=== PATIENT | female | born 1945 | race Caucasian/White ===

== ENCOUNTER → 2023-05-31 07:06 | Outpatient (REF) | payer OTHER, SELFPAY ==
[2023-05-31 10:33] LABS: ALT (SGPT) 26 U/L (0-35); AST (SGOT) 33 U/L (14-36); Albumin 3.9 g/dl (3.5-5.0); Alkaline Phosphatase 100 U/L (38-126); Blood Urea Nitrogen 39 mg/dl (7-17); Calcium 9.4 mg/dl (8.4-10.2); Carbon Dioxide 20 mmol/L (22-30); Chloride 111 mmol/L (98-107); Glucose 100 mg/dl (70-99); HDL Cholesterol 47 mg/dl; LDL Cholesterol, Calculated 63 mg/dl; Potassium 3.8 mmol/L (3.5-5.1); Sodium 139 mmol/L (135-145); Total Bilirubin 0.7 mg/dl (0.2-1.3); Total Cholesterol 158 mg/dl (50-199); Total Protein 6.7 g/dl (6.3-8.2); Triglyceride 240 mg/dl (10-149); Very Low Density Lipoprotein 48 mg/dl (0-30); eGFR 35.23
[2023-05-31 10:56] LABS: Microalbumin, Random Urine 1.5 mg/dl (0.6-1.7); Microalbumin/creatinine Ratio 20.3 mg/g
== END ==
LOC: HWLAB 07:06
PROVIDERS: ATTENDING PHYSICIAN Nurse Practitioner; OTHER PHYSICIAN Internal Medicine; OTHER PHYSICIAN Surgery Vascular Surgery; REFERRING PHYSICIAN Specialist
DX: N28.9 Disorder of kidney and ureter, unspecified (principal); E78.5 Hyperlipidemia, unspecified; I10 Essential (primary) hypertension; E11.9 Type 2 diabetes mellitus without complications; G45.9 Transient cerebral ischemic attack, unspecified
CPT/HCPCS: 36415; 80053; 80061; 82043; 82570; 83036

== ENCOUNTER → 2023-07-03 09:43 | Outpatient (REF) | payer OTHER, SELFPAY | LOC: DHCBC HW 09:43 | PROVIDERS: ATTENDING PHYSICIAN Internal Medicine; FAMILY PHYSICIAN Nurse Practitioner | DX: G45.9 Transient cerebral ischemic attack, unspecified (principal); I25.10 Atherosclerotic heart disease of native coronary artery without angina pectoris; I35.0 Nonrheumatic aortic (valve) stenosis; I73.9 Peripheral vascular disease, unspecified | CPT/HCPCS: 93306 ==

== ENCOUNTER → 2023-07-11 12:45 | Outpatient (REF) | payer OTHER, SELFPAY | LOC: RAD 12:45 | PROVIDERS: ATTENDING PHYSICIAN Surgery Vascular Surgery; FAMILY PHYSICIAN Nurse Practitioner | DX: I73.9 Peripheral vascular disease, unspecified (principal); I65.23 Occlusion and stenosis of bilateral carotid arteries | CPT/HCPCS: 93880; 93922; 93925 ==

== ENCOUNTER 2023-07-23 07:40 | Outpatient (RCR) | payer OTHER, SELFPAY ==
[2023-07-23] MEDS: SODIUM BICARBONATE 1150 MEQ IV (08:05)
[2023-07-23 08:20] VITALS: BP 155/48
[2023-07-23 14:10] VITALS: BP 144/52
== END 2023-08-17 23:59 | disposition home or self-care (01) ==
LOC: OID 07:40
PROVIDERS: ATTENDING PHYSICIAN Registered Nurse; FAMILY PHYSICIAN Nurse Practitioner
DX: I35.1 Nonrheumatic aortic (valve) insufficiency (principal); I73.9 Peripheral vascular disease, unspecified; I65.23 Occlusion and stenosis of bilateral carotid arteries
CPT/HCPCS: 96365; 96366

== ENCOUNTER → 2023-07-23 07:50 | Outpatient (REF) | payer OTHER, SELFPAY | LOC: RAD 07:50 | PROVIDERS: ATTENDING PHYSICIAN Surgery Vascular Surgery | DX: I65.23 Occlusion and stenosis of bilateral carotid arteries (principal) | CPT/HCPCS: 70496; 70498; Q9967 ==

== ENCOUNTER → 2023-08-22 07:57 | Outpatient (REF) | payer OTHER, SELFPAY ==
[2023-08-22 09:27] LABS: % Basophils 0.6 % (0-2); % Eosinophils 2.6 % (0-6); % Immature Granulocytes 0.3 % (0-0.5); % Lymphocytes 25.6 % (20.5-51.1); % Neutrophils 62.9 % (42.2-75.2); Absolute Basophils 0.1 10^3/uL (0-0.2); Absolute Eosinophils 0.2 10^3/uL (0-0.7); Absolute Monocytes 0.6 10^3/uL (0.1-0.6); Absolute Neutrophils 4.9 10^3/uL (1.4-6.5); Hematocrit 41.1 % (37.0-47.0); Hemoglobin 13.3 g/dL (12.0-16.0); Mean Corp Hgb Conc. 32.4 g/dL (33.0-37.0); Mean Corpuscular Hgb 30.9 pg (27.0-31.0); Mean Corpuscular Volume 95.4 fL (81.0-99.0); Mean Platelet Volume 12.2 fL (7.4-10.4); Nucleated Red Blood Cells % 0 %; Platelet Count 153 10^3/uL (130-400); Red Blood Cell Count 4.31 10^6/uL (4.20-5.40); Red Cell Dist. Width 14.1 % (11.5-14.5); White Blood Cell Count 7.7 10^3/uL (4.8-10.8)
== END ==
LOC: HWLAB 07:57
PROVIDERS: ATTENDING PHYSICIAN Internal Medicine Cardiovascular Disease; FAMILY PHYSICIAN Nurse Practitioner; REFERRING PHYSICIAN Internal Medicine
DX: I25.10 Atherosclerotic heart disease of native coronary artery without angina pectoris (principal)
CPT/HCPCS: 36415; 85025

== ENCOUNTER → 2023-09-28 14:42 | Outpatient (REF) | payer OTHER, SELFPAY | LOC: HWRCS 14:42 | PROVIDERS: ATTENDING PHYSICIAN Internal Medicine; FAMILY PHYSICIAN Nurse Practitioner | DX: Z95.2 Presence of prosthetic heart valve (principal); I35.1 Nonrheumatic aortic (valve) insufficiency | CPT/HCPCS: 93306 ==

== ENCOUNTER → 2024-02-08 12:57 | Outpatient (REF) | payer OTHER, SELFPAY | LOC: RAD 12:57 | PROVIDERS: ATTENDING PHYSICIAN Surgery Vascular Surgery | DX: I65.23 Occlusion and stenosis of bilateral carotid arteries (principal) | CPT/HCPCS: 93880; 93922; 93925 ==

== ENCOUNTER → 2024-02-22 13:03 | Outpatient (REF) | payer OTHER, SELFPAY ==
[2024-02-22 15:38] LABS: Protein/creatinine Ratio 0.9; Urine Protein 38 mg/dl
[2024-02-22 15:57] LABS: Blood Urea Nitrogen 30 mg/dl (7-17); Calcium 10.2 mg/dl (8.4-10.2); Carbon Dioxide 22 mmol/L (22-30); Chloride 105 mmol/L (98-107); Glucose 93 mg/dl (70-99); Sodium 140 mmol/L (135-145)
[2024-02-22 18:00] LABS: Intact PTH 25.1 pg/ml (13.6-85.8)
== END ==
LOC: RAD 13:03
PROVIDERS: ATTENDING PHYSICIAN Specialist; FAMILY PHYSICIAN Internal Medicine
DX: N18.32 Chronic kidney disease, stage 3b (principal); I70.1 Atherosclerosis of renal artery; I10 Essential (primary) hypertension
CPT/HCPCS: 36415; 76770; 80048; 82570; 83970; 84156

== ENCOUNTER → 2024-07-15 13:59 | Outpatient (REF) | payer OTHER, SELFPAY | LOC: RAD 13:59 | PROVIDERS: ATTENDING PHYSICIAN Surgery Vascular Surgery; FAMILY PHYSICIAN Internal Medicine | DX: I65.23 Occlusion and stenosis of bilateral carotid arteries (principal) | CPT/HCPCS: 93880 ==

== ENCOUNTER → 2024-07-18 11:35 | Outpatient (REF) | payer OTHER, SELFPAY ==
[2024-07-18 16:09] LABS: Blood Urea Nitrogen 40 mg/dl (7-17); Carbon Dioxide 24 mmol/L (22-30); Chloride 107 mmol/L (98-107); Glucose 120 mg/dl (70-99); Potassium 4.3 mmol/L (3.5-5.1); Sodium 142 mmol/L (135-145); eGFR 18.09
== END ==
LOC: HWLAB 11:35
PROVIDERS: ATTENDING PHYSICIAN Surgery Vascular Surgery; FAMILY PHYSICIAN Internal Medicine
DX: I65.23 Occlusion and stenosis of bilateral carotid arteries (principal)
CPT/HCPCS: 36415; 80048

== ENCOUNTER → 2024-08-01 07:30 | Outpatient (REF) | payer OTHER, SELFPAY | LOC: MRI 07:30 | PROVIDERS: ATTENDING PHYSICIAN Surgery Vascular Surgery; FAMILY PHYSICIAN Internal Medicine | DX: I65.23 Occlusion and stenosis of bilateral carotid arteries (principal) | CPT/HCPCS: 70544; 70549 ==

== ENCOUNTER → 2024-08-20 07:48 | Outpatient (REF) | payer OTHER, SELFPAY ==
[2024-08-20 09:35] LABS: % Basophils 0.8 % (0-2); % Eosinophils 0.1 % (0-6); % Immature Granulocytes 0.1 % (0-0.5); % Lymphocytes 30.8 % (20.5-51.1); % Monocytes 9.5 % (1.7-9.3); % Neutrophils 58.7 % (42.2-75.2); Absolute Basophils 0.1 10^3/uL (0-0.2); Absolute Lymphocytes 2.2 10^3/uL (1.2-3.4); Absolute Monocytes 0.7 10^3/uL (0.1-0.6); Absolute Neutrophils 4.2 10^3/uL (1.4-6.5); Hematocrit 39.7 % (37.0-47.0); Hemoglobin 12.7 g/dL (12.0-16.0); Mean Corpuscular Hgb 30.3 pg (27.0-31.0); Mean Corpuscular Volume 94.7 fL (81.0-99.0); Nucleated Red Blood Cells % 0 %; Platelet Count 106 10^3/uL (130-400); Red Blood Cell Count 4.19 10^6/uL (4.20-5.40); White Blood Cell Count 7.1 10^3/uL (4.8-10.8)
[2024-08-20 10:00] LABS: Glycohemoglobin (HgbA1c) 5.9 % (4.0-5.6)
[2024-08-20 10:42] LABS: ALT (SGPT) 20 U/L (0-35); AST (SGOT) 28 U/L (14-36); Albumin 4.3 g/dl (3.5-5.0); Alkaline Phosphatase 65 U/L (38-126); Blood Urea Nitrogen 44 mg/dl (7-17); Calcium 10.5 mg/dl (8.4-10.2); Carbon Dioxide 20 mmol/L (22-30); Chloride 114 mmol/L (98-107); Glucose 100 mg/dl (70-99); HDL Cholesterol 41 mg/dl; LDL Cholesterol, Calculated 88 mg/dl; Potassium 4.2 mmol/L (3.5-5.1); Sodium 144 mmol/L (135-145); Total Bilirubin 1.4 mg/dl (0.2-1.3); Total Cholesterol 160 mg/dl (50-199); Total Protein 7.3 g/dl (6.3-8.2); Triglyceride 159 mg/dl (10-149); Very Low Density Lipoprotein 31 mg/dl (0-30); eGFR 24.64
[2024-08-20 11:25] LABS: Microalbumin, Random Urine 7.5 mg/dl (0.6-1.7); Microalbumin/creatinine Ratio 90.1 mg/g
== END ==
LOC: RAD 07:48
PROVIDERS: ATTENDING PHYSICIAN Surgery Vascular Surgery; FAMILY PHYSICIAN Internal Medicine; REFERRING PHYSICIAN Specialist
DX: I65.23 Occlusion and stenosis of bilateral carotid arteries (principal); I73.9 Peripheral vascular disease, unspecified; Z98.890 Other specified postprocedural states; I10 Essential (primary) hypertension; E11.9 Type 2 diabetes mellitus without complications; N18.32 Chronic kidney disease, stage 3b; Z95.2 Presence of prosthetic heart valve; E78.5 Hyperlipidemia, unspecified; H54.7 Unspecified visual loss; H34.12 Central retinal artery occlusion, left eye; I48.92 Unspecified atrial flutter; G89.29 Other chronic pain; G25.81 Restless legs syndrome; K21.9 Gastro-esophageal reflux disease without esophagitis; J45.40 Moderate persistent asthma, uncomplicated; I25.10 Atherosclerotic heart disease of native coronary artery without angina pectoris; Z91.09 Other allergy status, other than to drugs and biological substances; Z13.31 Encounter for screening for depression
CPT/HCPCS: 36415; 80053; 80061; 82043; 82570; 83036; 85025; 93880; 93922; 93925

== ENCOUNTER → 2024-10-15 11:39 | Outpatient (REF) | payer OTHER, SELFPAY ==
[2024-10-15 16:23] LABS: Blood Urea Nitrogen 40 mg/dl (7-17); Calcium 10.1 mg/dl (8.4-10.2); Carbon Dioxide 25 mmol/L (22-30); Chloride 108 mmol/L (98-107); Glucose 89 mg/dl (70-99); Potassium 4.8 mmol/L (3.5-5.1); Sodium 140 mmol/L (135-145); eGFR 26.20
[2024-10-15 16:39] LABS: Vitamin D, 25-OH*** 88.8 ng/mL (30-80)
[2024-10-18 04:21] LABS: Free Kappa Light Chains,Quant 37.71 mg/L (3.30-19.40); Free Lambda Light Chains,Quant 32.58 mg/L (5.71-26.30); Kappa/Lambda Fr Light Ratio 1.16 (0.26-1.65)
== END ==
LOC: HWLAB 11:39
PROVIDERS: ATTENDING PHYSICIAN Specialist; FAMILY PHYSICIAN Family Medicine
DX: N18.32 Chronic kidney disease, stage 3b (principal); I70.1 Atherosclerosis of renal artery; I10 Essential (primary) hypertension; E11.9 Type 2 diabetes mellitus without complications
CPT/HCPCS: 36415; 80048; 82306; 82570; 82652; 83521; 83970; 84100; 84155; 84156; 84165

== ENCOUNTER → 2025-01-14 09:31 | Outpatient (REF) | payer OTHER, SELFPAY | LOC: RAD 09:31 | PROVIDERS: ATTENDING PHYSICIAN Registered Nurse; FAMILY PHYSICIAN Family Medicine; OTHER PHYSICIAN Surgery Vascular Surgery | DX: I73.9 Peripheral vascular disease, unspecified (principal); I65.23 Occlusion and stenosis of bilateral carotid arteries | CPT/HCPCS: 93880; 93922; 93925 ==

== ENCOUNTER 2025-01-26 05:43 | Observation (INO) | payer OTHER, SELFPAY ==
[2025-01-25 22:21] VITALS: BP 121/103
[2025-01-25 23:18] VITALS: BMI 28.3
[2025-01-25 23:20] VITALS: BP 125/45
[2025-01-25 23:47] LABS: Hematocrit 37.2 % (37.0-47.0); Hemoglobin 12.2 g/dL (12.0-16.0); Mean Corp Hgb Conc. 32.8 g/dL (33.0-37.0); Mean Corpuscular Volume 93.0 fL (81.0-99.0); Nucleated Red Blood Cells % 0 %; Platelet Count 147 10^3/uL (130-400); Red Cell Dist. Width 13.5 % (11.5-14.5)
[2025-01-26] VITALS (15 sets, daily range): BP systolic 114–145; BP diastolic 39–81; PULSE 70–72; O2SAT 96–97; BMI 28.1
[2025-01-26 00:10] LABS: ALT (SGPT) 28 U/L (0-35); AST (SGOT) 30 U/L (14-36); Albumin 4.1 g/dl (3.5-5.0); Alkaline Phosphatase 90 U/L (38-126); Blood Urea Nitrogen 37 mg/dl (7-17); Calcium 9.9 mg/dl (8.4-10.2); Carbon Dioxide 23 mmol/L (22-30); Chloride 108 mmol/L (98-107); Estimated Creatinine Clearance 20 ml/min; Glucose 123 mg/dl (70-99); Potassium 4.3 mmol/L (3.5-5.1); Sodium 136 mmol/L (135-145); Total Protein 7.2 g/dl (6.3-8.2); eGFR 21.97
[2025-01-26 00:16] LABS: Troponin I < 0.012 ng/ml
[2025-01-26] MEDS: CARAFATE SUSPENSION 1 GM PO (01:24)
--- NOTE | 2025-01-26 01:42 | ED.GENMED ---
History of Present Illness
<Carolina Moreno PA-C - Last Filed: 01/26/25 06:48>
General
Chief Complaint: Chest Pain
Source: patient
Exam Limitations: none
Time Seen by Provider: 01/26/25 00:45
Nursing documentation reviewed up to this point in time: agreed with
History of Present Illness
History of Present Illness:
Note:
CHIEF COMPLAINT(S)
Dizziness, blurry vision, headache, chest discomfort.
HISTORY OF PRESENT ILLNESS
The patient is an 79-year-old female with a pmh of asthma, left CRAO with residual blindness, b/l carotid stenosis, asthma presenting with dizziness and blurry vision, which began around 3 PM today. He described the dizziness and visual disturbance
as happening together, with the blurred vision primarily affecting his right eye. The vision issue started to resolve approximately five and a half hours later but remained different from baseline. The patient has a history of a stroke affecting the
left eye, leaving it legally blind. She also reported a headache that was persistent but had improved by the time of examination. Additionally, the patient experienced chest discomfort described as indigestion-like pressure, along with episodes of
shortness of breath in the afternoon. The chest discomfort persists, but the severity has lessened over time. He noted his blood pressure had been low recently, but there were no recent modifications to his blood pressure medications. The patient
mentioned taking metoprolol.
PAST MEDICAL AND SURGICAL HISTORY
The patient has a history of a stroke affecting vision. He also reported a history of valvular heart repair (one valve repaired).
SOCIAL DETERMINANTS AFFECTING HEALTH
The patient mentioned financial concerns and difficulty when shopping, noting that he felt winded and unwell during recent activities.
MEDICATIONS
The patient is currently taking metoprolol and has taken his PM medication prior to symptoms developing.
REVIEW OF SYSTEMS
- Vision � Dizziness and blurry vision affecting the right eye, resolving after several hours.
- Neurological � Persistent but improving headache; relevant past history of a stroke.
- Cardiovascular � Chest discomfort described as sensation similar to indigestion; patient reports experiencing episodic shortness of breath.
PHYSICAL EXAM
General: Alert, no acute distress.
Skin: Warm, dry.
Head: Normocephalic, atraumatic.
Neck: Supple, trachea midline.
Eye Ears, nose, mouth and throat: Oral mucosa moist.
EOMs intact. Peripheral visual alva intact.
Cardiovascular: Normal peripheral perfusion, No edema.
Respiratory: No wheezes, rales, or rhonchi. Respirations are non-labored.
Gastrointestinal: Abdomen nondistended.
Back: Normal range of motion, Normal alignment.
Musculoskeletal: Normal ROM, normal strength.
Neurological: CN II-XII intact. Alert and oriented to person, place, time, and situation, No focal neurological deficit observed.
Psychiatric: Cooperative, appropriate mood & affect.
PLAN
- The plan includes repeating blood markers, particularly troponin, to rule out any cardiac injury or developing blockage.
- Initiation of a medication (likely carafate) to address the chest discomfort presumed to be indigestion.
- Consideration of further imaging due to blurred vision history and potential cardiologic concerns, pending discussion with the consulting physician.
- Continuous monitoring of vital signs and symptoms, particularly focusing on vision and cardiac symptoms.
DIFFERENTIAL DIAGNOSIS
The Differential Diagnosis includes, in no particular order and is not limited to:
- Transient ischemic attack (TIA)
- Stroke
- Cardiac ischemia or myocardial infarction
- Hypertensive crisis
- Valvular heart disease complications
- Acute coronary syndrome
- Atrial fibrillation
- Hypotensive episode
- Carotid artery stenosis
- Gastroesophageal reflux disease
CHART REVIEW
Reviewed discharge summary from 04/07/2022 patient seen for cellulitis of the right thumb reviewed discharge summary from
patient seen for abdominal pain nausea diagnosed with diverticulitis
Reviewed most recent carotid ultrasound
Reviewed prior neck and head MRI
MDM/disposition
Patient will require admission to the hospitalist. 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 Juan comes in
today with concerns of blurry vision of the right eye and dizziness lasting a few hours. Symptoms have since resolved. She is also had chest pain starting around that time which was described as indigestion, Carafate did help with her symptoms and
she was ruled out for ACS in the ED. Her CAT scan today shows no evidence of bleeding and the brain. Patient also evaluated by ED attending at bedside. Considering her significant ocular history and existing blindness in the left eye, will plan
to admit for observation potential vascular consult. Did have recent bilateral carotid ultrasound which was stable.
Past History
<Carolina Moreno PA-C - Last Filed: 01/26/25 06:48>
Past History
ED Past Medical History: Asthma, Cancer (Uterine CA), CVA (TIA, CVA with left eye blindness. Ambulates with a cane.), Fibromyalgia, HTN, Hypercholesterolemia, NIDDM, CO and Other (Kidney stones, sleep apnea, Diverticulisi, Gastritis, UTI,
arthritis, chronic back pain,)
ED Past Surgical History: Appendectomy, Cardiac (TAVR), Cholecystectomy, Gynecological (Hysterectomy due to CA tumor), Orthopedic (Charlie knee replacements 2002, back surg. Bilateral carpal tunnel, Fused vertebra, hemilaminectomy) and Other (recent
right carotid endarterectomy, ,right club subclavian to carotid artery bypass Right and left carotid stenting)
Social History
Tobacco: Former smoker
Alcohol: None
Personal:
Living: with family
Employment: Retired
Family History
Family History: Other (Noncontributory)
Review of Systems
<Carolina Moreno PA-C - Last Filed: 01/26/25 06:48>
Review of Systems
All Other Systems: ROS reviewed and negative except as documented in HPI and ROS
Phy Exam
<Carolina Moreno PA-C - Last Filed: 01/26/25 06:48>
Physical Exam
Physical Exam:
see hpi
Scores
<Carolina Moreno PA-C - Last Filed: 01/26/25 06:48>
Heart Score for Chest Pain Patients
STEMI patient?: No
History: Moderately Suspicious
ECG: Normal
Age: >/= 65 years
Risk Factors: 1 or 2 Risk Factors
Troponin: </= Normal Limit
Heart Score for Chest Pain Patients: 4
Heart Score Risk: 20.3% MACE over next 6 weeks
Course
<Carolina Moreno PA-C - Last Filed: 01/26/25 06:48>
Orders/Labs/Results
Orders:
Orders
01/25/25 22:22
Electrocardiogram (*1) Urgent
Reason for Study: Chest Pain
EKG- Treatment ONCE
01/25/25 23:28
Complete Blood Count/With Diff Urgent
Comprehensive Metabolic Panel Urgent
Lipase Urgent
Comment: ADD ON
Troponin I Urgent
01/26/25 01:05
Sucralfate Suspension [Carafate Suspension] 1 gm PO NOW STA
01/26/25 01:07
CR Chest - 2 Views Urgent
Comment:
Reason For Exam: chest pain
01/26/25 01:08
Add On- LAB Urgent
Tests Added?: lipase
01/26/25 01:27
CT Head W/o Iv Contrast Urgent
Comment:
Reason For Exam: r sided headache, eliquis
01/26/25 02:28
Electrocardiogram (*1) Urgent
Reason for Study: Chest Pain
01/26/25 02:30
Troponin I Urgent
01/26/25 04:55
Admit/Transfer Patient As Directed
Co-Sign Provider:
Level of Care: Observation services
Assign to:: Telemetry
Physician / Group: Tamiko
Diagnosis: Vision changes
Reason for Telemetry: CVA/TIA
Date to Stop Telemetry: 01/29/25
Time to Stop Telemetry: 11:00
01/26/25 04:59
PRN Pain Medication Management As Directed
May give lesser potent ordered pain med per pt: Yes
preference::
Protocol:: Medication orders for pain may be administered in a
manner that supports deferring to patient preference
when the pt is:
- Requesting an ordered lesser potent pain medication.
Least to most potent pain medications are defined
as: acetaminophen < NSAID < tramadol < opioids
(morphine, oxycodone, hydromorphone).
- Requesting a lesser dose of the same medication IF
ORDERED.
- Requesting a less intrusive route of administration
if both routes are prescribed by the provider (PO <
IV).
01/26/25 05:02
Code Status As Directed
Resuscitation Status: Full Code
01/29/25 11:00
DC Protocol for Telemetry ONCE
Abnormal Lab Results
01/25/25
23:28
RBC 4.00 L 10^6/uL
(4.20-5.40)
MCHC 32.8 L g/dL
(33.0-37.0)
MPV 11.3 H fL
(7.4-10.4)
Chloride 108 H mmol/L
(98-107)
BUN 37 H mg/dl
(7-17)
Creatinine 2.2 H mg/dL
(0.6-1.0)
Glucose 123 H mg/dl
(70-99)
01/25/25 23:28
01/25/25 23:28
Vital Signs
Initial and Last Documented VS:
Initial Vital Signs
Pulse Resp Pulse Ox
77 19 98
01/25/25 22:17 01/25/25 22:17 01/25/25 22:17
Last Documented Vital Signs
Temp Pulse Resp BP Pulse Ox
97.9 F 72 20 139/39 95
01/25/25 22:19 01/26/25 04:30 01/26/25 03:15 01/26/25 04:00 01/26/25 01:42
<Jordana Nicholson, DO - Last Filed: 01/26/25 05:22>
Orders/Labs/Results
Orders:
Orders
01/25/25 22:22
Electrocardiogram (*1) Urgent
Reason for Study: Chest Pain
EKG- Treatment ONCE
01/25/25 23:28
Complete Blood Count/With Diff Urgent
Comprehensive Metabolic Panel Urgent
Lipase Urgent
Comment: ADD ON
Troponin I Urgent
01/26/25 01:05
Sucralfate Suspension [Carafate Suspension] 1 gm PO NOW STA
01/26/25 01:07
CR Chest - 2 Views Urgent
Comment:
Reason For Exam: chest pain
01/26/25 01:08
Add On- LAB Urgent
Tests Added?: lipase
01/26/25 01:27
CT Head W/o Iv Contrast Urgent
Comment:
Reason For Exam: r sided headache, eliquis
01/26/25 02:28
Electrocardiogram (*1) Urgent
Reason for Study: Chest Pain
01/26/25 02:30
Troponin I Urgent
01/26/25 04:55
Admit/Transfer Patient As Directed
Co-Sign Provider:
Level of Care: Observation services
Assign to:: Telemetry
Physician / Group: Tamiko
Diagnosis: Vision changes
Reason for Telemetry: CVA/TIA
Date to Stop Telemetry: 01/29/25
Time to Stop Telemetry: 11:00
01/26/25 04:59
PRN Pain Medication Management As Directed
May give lesser potent ordered pain med per pt: Yes
preference::
Protocol:: Medication orders for pain may be administered in a
manner that supports deferring to patient preference
when the pt is:
- Requesting an ordered lesser potent pain medication.
Least to most potent pain medications are defined
as: acetaminophen < NSAID < tramadol < opioids
(morphine, oxycodone, hydromorphone).
- Requesting a lesser dose of the same medication IF
ORDERED.
- Requesting a less intrusive route of administration
if both routes are prescribed by the provider (PO <
IV).
01/26/25 05:02
Code Status As Directed
Resuscitation Status: Full Code
01/29/25 11:00
DC Protocol for Telemetry ONCE
Abnormal Lab Results
01/25/25
23:28
RBC 4.00 L 10^6/uL
(4.20-5.40)
MCHC 32.8 L g/dL
(33.0-37.0)
MPV 11.3 H fL
(7.4-10.4)
Chloride 108 H mmol/L
(98-107)
BUN 37 H mg/dl
(7-17)
Creatinine 2.2 H mg/dL
(0.6-1.0)
Glucose 123 H mg/dl
(70-99)
01/25/25 23:28
01/25/25 23:28
Vital Signs
Initial and Last Documented VS:
Initial Vital Signs
Pulse Resp Pulse Ox
77 19 98
01/25/25 22:17 01/25/25 22:17 01/25/25 22:17
Last Documented Vital Signs
Temp Pulse Resp BP Pulse Ox
97.9 F 72 20 139/39 95
01/25/25 22:19 01/26/25 04:30 01/26/25 03:15 01/26/25 04:00 01/26/25 01:42
<Carolina Moreno PA-C - Last Filed: 01/26/25 06:48>
*Pulse Oximetry
SaO2: 95
Oxygen Mode of Delivery: Room air
Patient hypoxic: no
*Critical Care Note
Total Time (30-74mins, 75-104mins- exclusive of procedures): Not Applicable
ED Attending Note
<Carolina Moreno PA-C - Last Filed: 01/26/25 06:48>
-
Portions of this chart may have been created with voice recognition software.� Occasional wrong word or��sound alike� substitutions may have occurred due to the inherent limitations of voice recognition software.
<Jordana Nicholson DO - Last Filed: 01/26/25 05:22>
ED Attending Note
Patient seen and examined by attending physician: Yes
I performed a history and physical exam of patient and discussed management with resident, I reviewed resident's note and agree with documented findings and plan of care.: Yes
ED Attending Note:
79-year-old woman with history of aortic stenosis/TAVR, history of left optic nerve CVA�chronic blindness of her left eye, history of prior TIAs as well as history of bilateral carotid artery disease status post bilateral carotid stents.
She presents with concern for blurry vision of her right eye associated with mild frontal headache and overall sense of not feeling well, mild substernal chest discomfort that all began around 3 PM. Right eye blurriness improved after 3 hours. She
denies loss of vision, no dizziness nor palpitations. No weakness nor numbness. She continued with some lower substernal chest discomfort/epigastric discomfort.
Chronically maintained on Eliquis as well as low-dose aspirin. Has been compliant with her medications. She follows regularly with vascular surgery, Dr. Juan with recent visit 1 week ago.
Carotid ultrasound January 14 showed patent subclavian, carotid artery bypass on the right. There is note of distal anastomosis stenosis of greater than 50% as well as mild stenosis of less than 50% right internal carotid artery. Similarly noted
on previous exams. Patent left carotid stent with no significant in-stent stenosis.
79-year-old woman appears her stated age, bright and alert, pleasant, easily communicative and in no acute distress.
Chronic blindness right eye. No visual field deficit right eye. Gross visual acuity intact right eye.
Heart is regular rate and rhythm.
Neuro: No focal deficits save for chronic left eye blindness.
EKG shows normal sinus rhythm at 75, no acute ST-T wave abnormalities and unchanged from previous.
Thus far labs are unremarkable. Creatinine 2.2, at her baseline.
Initial troponin is negative. Awaiting repeat troponin.
With history of significant cerebrovascular disease, previous stroke as well as TIAs, I do have significant concern for recurrent TIA.
Also concern for ACS however reassuring that EKG is unchanged and initial troponin is negative.
Will check CT of the head, awaiting repeat troponin.
Due to concern for TIA and significant risk factors for recurrent stroke, will plan to admit to hospital service for continued observation and potential neuro/vascular surgery input.
Discharge Plan
Departure
Patient Disposition: Admit
Date of Disposition: 01/26/25
Time of Disposition: 03:27
Admit to: Med/Surg
Presentation/result/management discussed w/ accepting MD/DO: Hospitalist
Condition: Good
Discharge Problem:
Blurred vision, right eye, Dizziness
Interventions
Interventions:
*Risk Screen - Suicide Last Done: 01/25/25 22:20
*General Assessment Last Done: 01/25/25 22:20
*Neglect/Abuse Screening Last Done: 01/25/25 22:20
*ED- Fall Risk Assessment Last Done: 01/25/25 23:31
*ED COVID-19 Vaccine History Last Done: 01/25/25 22:20
*ED Influenza Vaccine History Last Done: 01/25/25 22:20
ED- Cardiac Assessment Last Done: 01/25/25 23:31
[2025-01-26 01:44] LABS: Lipase 230 U/L (23-300)
[2025-01-26 03:12] LABS: Troponin I < 0.012 ng/ml
--- NOTE | 2025-01-26 04:11 | HPS.HSE ---
Family Physician
-
Family Physician: Shanti Cancino DO
Chief Complaint
-
Blurry vision
History of Present Illness
This is a 79-year-old who has a past medical history significant for possible atrial fibrillation on anticoagulation, hypertension, aortic stenosis status post TAVR, femoral-femoral artery bypass, bilateral carotid artery stenosis status post left
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
indigestion.
Patient reported that she woke up in usual state of health and was doing shopping with spouse when she did not feel well. She felt slightly dizzy and felt she needed to sit down. This passed and then she went home. At home she felt some
improvement and went to sleep. When she woke up she noticed some numbness in right hand. She has noticed this before when sleeping on that hand. However she started to notice that right eye vision which is the only that walks is abnormal. She
says not blurry but describes that the resolution was not. She reports having a headache which she localized to the glabella towards the right orbit. She stated the blurry vision lasted for about 3 hours but is now resolved. She denies any other
focal neurological symptoms. She denies any palpitations.
In ED she was afebrile, blood pressure was 140 over with a pulse of 71 and she was satting 98% on room air. ECG shows a normal sinus rhythm at rate of [address] of the head showed no acute interval changes. Chest x-ray was clear.
Troponin was negative. CBC was unremarkable. Electrolytes were all normal. Repeat troponin was negative.
She had a recent carotid artery ultrasound Oct 30 showing stable findings:R sided there is patent subclavian to common carotid artery bypass. Elevated velocities at the proximal anastomosis however these are decreased compared to the prior
examination. There is a focal velocity elevation at the distal anastomosis at 220 cm/s (ratio 2.4) suggesting a greater than 50% stenosis at this location. Similar velocity measurements were identified on the prior examination. Velocity measurements
in the internal carotid artery are consistent with less than 50% internal carotid artery stenosis. Antegrade vertebral artery flow. The left stent is patent.
Medical History
Past Medical History
Past Medical History: Reports Other
Additional Past Medical History:
cVA with left eye blindness, chronic numbness and tingling in her left hand, hypertension, TAVR, right carotid endarterectomy, right subclavian to carotid artery bypass, femorofemoral bypass, hypercholesteremia, diabetes, asthma, kidney stones,
sleep apnea, fibromyalgia, arthritis,
Past Surgical History: Reports Appendectomy, Cholecystectomy, Gynocological (Hysterectomy), Orthopedic (Bilateral knee replacements) and Other (Right carotid endarterectomy, femoral-femoral bypass, right subclavian to carotid artery bypass)
Social History
Tobacco: Non-smoker
Alcohol: None
Drug: None
Personal: Single
Living: With Family
Family History
Family History: Not pertinent
Allergies / Home Medications
Allergies reflects when Allergies were last updated in [facility].
Home Medications with original date entered in [facility]
Allergy/Medication List:
Allergies
Allergy/AdvReac Type Severity Reaction Status Date / Time
vancomycin Allergy Intermediate Nausea / Verified 01/25/25 22:22
Vomiting,
ringing in
ears
adhesive tape Allergy Rash Verified 01/25/25 22:22
adrenal cortex (porcine) Allergy asthma Verified 01/25/25 22:22
eucalyptus Allergy bloody nose Verified 01/25/25 22:22
fluticasone (From Advair Allergy asthma Verified 01/25/25 22:22
Diskus) flairs
glipizide Allergy Shortness Verified 01/25/25 22:22
of Breath,
rash
Iodinated Contrast Media Allergy Hives Verified 01/25/25 22:22
iodine Allergy Hives Verified 01/25/25 22:22
mirtazapine Allergy Hives Verified 01/25/25 22:22
mold Allergy asthma Verified 01/25/25 22:22
symptoms
morphine Allergy Rash, hives Verified 01/25/25 22:22
peach Allergy Hives Verified 01/25/25 22:22
Penicillins Allergy Hives long Verified 01/25/25 22:22
time ago
propoxyphene napsylate (From Allergy 'Knocks me Verified 01/25/25 22:22
Darvocet-N) out'
salmeterol (From Advair Allergy asthma Verified 01/25/25 22:22
Diskus) flairs
sulfamethoxazole (From Allergy Rash-vomiti Verified 01/25/25 22:22
Bactrim) ng
tixocortol (Tixocortol) Allergy Shortness Verified 01/25/25 22:22
of
Breath;hives
Advair disc
trimethoprim (From Bactrim) Allergy Rash-vomiti Verified 01/25/25 22:22
ng
clindamycin AdvReac nausea & Verified 01/25/25 22:22
vomiting,
rash
levofloxacin (From Levaquin) AdvReac nausea and Verified 01/25/25 22:22
vomiting
nitrofurantoin (From AdvReac Nausea / Verified 01/25/25 22:22
Macrobid) Vomiting
oxycodone HCl (From Percocet) AdvReac 'knocks me Verified 01/25/25 22:22
out'
Home Medications
ascorbic acid (vitamin C) 500 mg tablet (Vitamin C) 1,000 mg PO DAILY Supplement 04/10/19
cranberry riyf-R-lvkahicu coag 450 mg-30 mg-50 million cell tablet (Mjsrtiyct-Ichjmormb-Povorpg C) 1 tab PO DAILY Supplement 04/10/19
docusate sodium 100 mg capsule 100 mg PO QPM Constipation 04/10/19
ezetimibe 10 mg tablet 10 mg PO QPM High cholesterol 04/10/19
montelukast 10 mg tablet 10 mg PO QPM Lung/breathing issues 04/10/19
aspirin 81 mg tablet,delayed release 81 mg PO DAILY Blood clot prevention/tx 11/18/19
pantoprazole 40 mg tablet,delayed release 40 mg PO QPM Gastrointestinal issue 12/03/20
apixaban 5 mg tablet (Eliquis) 2.5 mg PO BID Blood clot prevention/tx 12/06/20
dorzolamide 2 %-timolol 0.5 % (PF) eye drops 1 drp LEFT EYE BID Eye condition 12/06/20
amlodipine 10 mg tablet 10 mg PO DAILY Blood pressure 12/08/20
B-complex with vitamin C 1 cap PO DAILY Supplement 12/16/20
folic acid 1 mg tablet 1 mg PO DAILY Supplement 12/16/20
metoprolol succinate 25 mg tablet,extended release 24 hr 25 mg PO BID Heart disease/condition 12/16/20
cholecalciferol (vitamin D3) 25 mcg (1,000 unit) tablet 1,000 units PO DAILY Supplement 03/24/21
latanoprost 0.005 % eye drops 1 drp LEFT EYE DAILY Eye condition 03/24/21
ropinirole 0.5 mg tablet 0.5 mg PO HS Restless legs 03/07/22
rosuvastatin 40 mg tablet 40 mg PO QPM High Cholesterol 03/07/22
losartan 50 mg tablet 50 mg PO DAILY Blood Pressure 01/30/23
potassium 1 tab PO QPM Electrolyte Repletion 01/30/23
sertraline 50 mg tablet 50 mg PO QPM Depression 01/30/23
sitagliptin phosphate 50 mg tablet (Januvia) 25 mg PO DAILY Diabetes 01/30/23
tramadol 50 mg tablet 50 mg PO Q6H PRN moderate pain 01/30/23
zinc acetate 50 mg (zinc) capsule 50 mg PO DAILY Supplement 01/30/23
mupirocin 2 % topical ointment 1 applic topical TID #1 g 02/04/23
diphenhydramine HCl 25 mg capsule (Benadryl) 25 mg PO PRN PRN With CT Scan 07/23/23
prednisone 10 mg tablet 32 mg PO PRN PRN With CT Scan 07/23/23
Review of Systems
-
Constitutional: Reports No Symptoms
EENT: Reports No Symptoms and Other (Blurry vision in R eye)
Respiratory: Reports No Symptoms
Cardiac: Reports Chest Pain (indigestion)
Abdomen/GI: Reports No Symptoms
: Reports No Symptoms
Musculoskeletal: Reports No Symptoms
Skin: Reports No Symptoms
Neurological: Reports Dizzy
Endocrine: Reports No Symptoms
Hematologic/Lymphatic: Reports No Symptoms
Psych: Reports No Symptoms
Physical Exam
Vital Signs
Vital Signs
Temp Pulse Resp BP Pulse Ox
97.9 F 71 20 144/43 95
01/25/25 22:19 01/26/25 01:15 01/26/25 01:15 01/26/25 01:00 01/26/25 01:42
Physical Exam
General: Well Developed, Well Nourished and No Apparent Distress
HEENT: NormoCephalic, Moist mucous membranes and Atraumatic; No PERRLA (Left eye dilated pupil (blind in that eye).)
Respiratory: Clear
Cardiac: S1/S2 and Regular Rhythm; No Murmur or Rub
GI: Soft, Non Tender, Non Distended and Normal Bowel Sounds; No Organomegaly
Rectal: Deferred by Provider
Genito-urinary: Deferred by me
Musculoskeletal: No Clubbing, No Cyanosis and No Edema
Skin: Rash and Other (right great thumb redness)
Neuro: AO x 3 and Nonfocal/grossly intact
Psych: Calm
Laboratory Results
-
01/25/25 23:28
01/25/25 23:28
Laboratory Results
Total Bilirubin 1.3 mg/dl (0.2-1.3) 01/25/25 23:28
AST 30 U/L (14-36) 01/25/25 23:28
ALT 28 U/L (0-35) 01/25/25 23:28
Alkaline Phosphatase 90 U/L (38-126) 01/25/25 23:28
Troponin I < 0.012 ng/ml 01/26/25 02:30
Lipase 230 U/L (23-300) 01/25/25 23:28
Data Reviewed
-
CT Scan: Report Reviewed by me
Ultrasound: Report Reviewed by me
Medical Tests (Nuc Med, Echo, EKG etc): Image Personally Visualized and interpreted
Lab Data: Labs Reviewed by me
Old Records: Reviewed
Impression/Plan
-
IMPRESSION:
This is a 79-year-old with left eye blindness with left carotid stenting, status post total right carotid endarterectomy and a subclavian to carotid CAD bypass, aortic stenosis status post TAVR, DM2, paroxysmal afib, hyperlipidemia, obstructive
sleep apnea, asthma, presenting and blurriness in the right eye lasting for about 3 hours now resolved. No other focal logical deficits. There was some associated dizziness and mild chest discomfort now resolved. Troponin was negative x 2. ECG
is nonischemic. CT of the head showed no acute findings. Recent ultrasound shows stable stenosis of the carotid arterial supply with stable stenosis at the anastomosis. Denied any eye pain, tearing, foreign body sensation. She did have a
headache localized to the glabella which is still present but resolving.
PLAN:
Right eye blurry vision -TIA versus less likely temporal arteritis versus retinal detachment or vitrous changes. Symptoms now improved.
- admit to telemetry observation
- given very recent carotid u/s will not repeat
- mri will not be useful as no focal deficits
- check ESR
- neurochecks q 4
- continue current asa, statin, eliquis, ezetimibe
- consider vascular consult
AFIB - NSR, rate controlled
- continue eliquis
- continue metoprolol
Asthma - No active process
- continue montelukast
- prn nebs
HTN - stable
- continue her norvasc losartan and metoprolol
DVT PPX - SCDs
Code status - Full Code
--- NOTE | 2025-01-26 08:37 | PTCARENOTE ---
Arrived to floor and ambulated to room. Patient reports no blurry vision or indigestion. Oriented to room. Call back within reach.
[2025-01-26] MEDS: TOPROL XL 25 MG PO ×2 (09:37→21:07)
[2025-01-26] MEDS: VITAMIN C 1000 MG PO (09:38)
[2025-01-26] MEDS: VITAMIN D3 (cholecalciferol) 25 MCG PO (09:38)
[2025-01-26] MEDS: ELIQUIS 2.5 MG PO ×2 (09:38→21:07)
[2025-01-26] MEDS: COZAAR 50 MG PO (09:38)
[2025-01-26] MEDS: NORVASC 10 MG PO (09:38)
[2025-01-26] MEDS: ASPIR LOW (ENTERIC COATED) 81 MG PO (09:38)
[2025-01-26] MEDS: B COMPLEX w/VITAMIN C 1 CAPLET PO (09:39)
[2025-01-26] MEDS: JANUVIA 25 MG PO (09:39)
[2025-01-26] MEDS: FOLVITE 1 MG PO (09:39)
--- NOTE | 2025-01-26 09:58 | W.PN.HOSP.TC ---
Today's Communication/Plan
-
.
Assessment / Plan
Assessment / Plan
Physical Exam
General: Well Developed, Well Nourished and No Apparent Distress
HEENT: NormoCephalic, Moist mucous membranes and Atraumatic; No PERRLA (Left eye dilated pupil (blind in that eye).)
Respiratory: Clear
Cardiac: S1/S2 and Regular Rhythm; No Murmur or Rub
GI: Soft, Non Tender, Non Distended and Normal Bowel Sounds; No Organomegaly
Rectal: Deferred by Provider
Genito-urinary: Deferred by me
Musculoskeletal: No Clubbing, No Cyanosis and No Edema
Skin: Rash and Other (right great thumb redness)
Neuro: AO x 3 and Nonfocal/grossly intact
Psych: Calm
Right eye blurry vision -resolved
seen by neurology, for mRI studies
d/w Dr Juan, pt is known to him, no need for vascular intervention
AFIB - NSR, rate controlled
- continue eliquis
- continue metoprolol
Asthma - No active process
- continue montelukast
- prn nebs
HTN - stable
- continue her norvasc losartan and metoprolol
DVT PPX - SCDs
Code status - Full Code
Total time spent to see the pt, examine the pt,review data and lab results, discuss treatment plan with neurology, vascular, pt and nursing staff around 59 minutes
Anticipated Discharge: Within 24 hours
Subjective/Interval History
-
Date of Service: January 26, 2025
No blurred vision
No headache
No chest pain
Objective Data
-
Labs:
Laboratory Results
01/25/25
23:28
WBC 7.4
Hgb 12.2
Hct 37.2
Plt Count 147
Sodium 136
Potassium 4.3
Chloride 108 H
Carbon Dioxide 23
BUN 37 H
Creatinine 2.2 H
Glucose 123 H
Calcium 9.9
Total Bilirubin 1.3
AST 30
ALT 28
Alkaline Phosphatase 90
Vital Signs:
Vital Signs
Temp Pulse Resp BP Pulse Ox
97.7 F 71 18 137/51 95
01/26/25 08:00 01/26/25 09:37 01/26/25 08:00 01/26/25 09:37 01/26/25 01:42
--- NOTE | 2025-01-26 10:38 | CON.NEURO4 ---
Addendum entered and electronically signed by Rc Green MD 01/26/25 19:04:
I had a detailed discussion with the patient regarding the assessment and the management plan, and she verbalized understanding of our discussion.
Addendum entered and electronically signed by Rc Green MD 01/26/25 18:45:
I saw and examined the patient with nurse practitioner Muna Roque and I agree with her assessment and management plan. Given below is my addendum.
The patient is an 79 years old female, with a past medical history of atrial fibrillation on anticoagulation, hypertension, aortic stenosis status post TAVR, bilateral carotid artery stenosis status post left endarterectomy resulting in left eye
central retinal artery occlusion and blindness, right endarterectomy and right subclavian carotid artery bypass, asthma, GERD, CKD stage III, who presented to the ER with complaint of loss of vision in the right eye that resolved in about 2 to 3
hours and then she returned to her baseline. The symptoms started on 01/25/2025. She denies any headache, facial droop or any focal numbness or weakness of arms or legs. She is on apixaban and aspirin at home. She is being followed by vascular
surgery as an outpatient.
CT head was obtained on arrival in the ER and is negative for any acute abnormalities but it shows encephalomalacia within the right basal ganglia/pearce radiata.
Neurologic Examination:
The patient is alert and oriented x 3, speech is clear, the cranial nerves II to XII are grossly intact, the patient has antigravity strength in bilateral upper and lower extremities, sensations are grossly intact and there is no limb ataxia seen.
Assessment and Plan:
The patient had a transient loss of vision in the right eye and she returned to her baseline in about 2 to 3 hours. The patient is on apixaban for atrial fibrillation and she is also on aspirin. The patient will follow-up with vascular surgery as
an outpatient.
. The MRI of the brain does not show evidence of an acute infarct, however, it shows chronic infarcts in the right lentiform nucleus, right temporal lobe, bilateral pearce radiata and left cerebellar hemisphere.
. The MRA of the brain does not show evidence for high-grade stenosis or occlusion in the [place] of [place].
. The MRA of the neck shows chronic occlusion of the right common carotid artery. Patent right subclavian to distal right common carotid artery bypass graft. mSusceptibility artifact limits evaluation of the left carotid stent. The left carotid
stent.
Will sign off. Please call if you have any question.
Original Note:
Consultation - Neurology 4
-
CONSULTING PHYSICIAN: Rc Green MD
REFERRING PHYSICIAN: Hospitalists/Dr. Dumont
DICTATED BY: SHAQUILLE Cabral
DATE/TIME OF REQUEST: 01/26/25
DATE/TIME OF CONSULTATION: 01/26/25
Reason for Consultation: Right eye visual disturbance
History of Present Illness:
This is an 79-year-old right-handed female who has presented to the hospital with report of transient right eye vision loss, right hand numbness, and dizziness. Patient has been previously evaluated by our Neurology service for bilateral hand
numbness, restless legs, and stroke in the past.
From previous evaluation by Neurology Dr. Urbano on 03/08/22:
'76-year-old woman with a complex history of previous right MCA occlusion status post mechanical thrombectomy with a chronic right-sided ischemic stroke and ensuing left leg more than arm weakness, left-sided CRAO, right-sided carotid endarterectomy
with carotid to subclavian/rotted bypass, left ICA stent who presents to hospital with GI bleed and neurology consulted due to paresthesia in the left hand. Patient notes that she has had some intermittent left hand tingling somewhat chronically
and has been more noticeable over about the past week. She notes she will occasionally have some paresthesia in her right hand as well and in the feet bilaterally as well. She reports a history of carpal tunnel release many years ago and also does
have a history of diabetes. She denies any new weakness, facial asymmetry or speech difficulty. He says that she has chronic weakness more in the left arm than the left leg after her MCA stroke and thrombectomy for this. Denies any headache. At
home she has been on both aspirin and apixaban.
Neurologic examination demonstrates left eye chronic blindness greater than 20/200, no hemianopia, no facial asymmetry or dysarthria, motor examination shows left arm has some mild pronator drift and 4/5 shoulder abduction in the left leg shows more
weakness in the left arm with 4 -/5 hip flexion but is able to sustain against gravity and offer a little bit of resistance against examiner's motor examination, light touch and vibration are intact grossly in the upper and lower extremities and she
has trace 1+ reflexes in the upper extremities but I cannot elicit any in the lower extremities bilaterally and there is no ataxia.
Assessment: No concern that the patient has had a new stroke. She does have a history of diabetes as well as carpal tunnel release and some previous strokes all of which could produce some intermittent chronic sensory symptoms which she appears to
have. He likely has either diabetic induced or idiopathic peripheral neuropathy present, certainly involving the feet bilaterally and probably involving the hands to a smaller degree. Some degree of a worsening of her chronic stroke symptoms is
also probably occurring due to the GI bleed and acute illness. Her MRI previously had demonstrated multiple strokes including the known right frontal and basal ganglia infarct
which was from her right MCA stroke for which she subsequently had a thrombectomy, but she also has bilateral chronic infarcts in the frontal white matter.'
Patient reports that yesterday (01/25/25), she was in her usual state of health when she was out shopping and suddenly started to feel dizzy and needed to sit down. Her took her home and she proceeded to take a nap. She felt better upon
waking however noticed that her right hand felt numb and her right eye vision was blurry, and she had a right-sided headache. Her symptoms lasted for 2 to 3 hours before completely resolving. CT head was obtained on arrival in the ER and is
negative for any acute abnormalities. Today (), she reports feeling completely at her baseline. She denies any headache, dizziness, right eye visual changes, speech\\swallowing difficulty, numbness, and weakness. She reports her chronic
left eye blindness. Per review of outpatient records it appears that she had right eye blurred vision in June 2024 lasting 15 minutes. She is followed by vascular surgery as an outpatient. She is taking apixaban and aspirin 81mg and denies missing
any doses.
Past Medical History: Afib (apixaban), L CRAO, R M1/M2 ischemic stroke s/p thrombectomy 2020, HTN, HLD, DM2, arthritis, TROY, depression, insomnia, carpal tunnel syndrome, kidney stones, endometrial cancer, DJD, psoriasis, lyme disease (1989),
hiatal hernia, esophagitis, GERD, PNA, shingles
Surgical History: L TCAR with open exposure of L CCA, R CEA, TAVR, L fem artery bypass, Appendectomy, b/l knee replacement, cholecystectomy, hysterectomy, b/l tubal ligation, carpal tunnel release, lithotripsy, L1-L2 laminectomy, L3-L4 fusion,
Family History: Mother- Stroke.
Social History: Former smoker, denies alcohol or illicit drug use.
Allergies: See below.
Home Medications: See below.
Review of Symptoms:
Patient denies any fever, headache, chest pain, shortness of breath, GI or symptoms.
�Per the HPI.�All systems are reviewed negative except above.
Physical Exam:
The patient is afebrile, abdomen is nondistended, breathing is unlabored, skin is warm and dry, no edema.
NIH Stroke Scale:
I performed the NIH stroke scale on the patient on 01/26/25 at 0945. The patient scored 0 points on the NIH stroke scale assessment, which were assigned as follows: See below.
Neurologic Examination:
The patient is awake, alert and oriented x 3. She is able to follow commands and answer questions appropriately. There is no aphasia or dysarthria. On cranial nerve assessment, pupils are 3 mm bilateral, round and reactive to light and
accommodation. Visual currie are absent in the left eye, full in the right eye. Extraocular movements are intact. Facial sensations are intact and bilaterally symmetrical, there is no facial asymmetry. Hearing is intact bilaterally to normal
conversation volume. Tongue palate and uvula are midline. Sternocleidomastoid strengths are full bilaterally. Motor strengths are 5/5 bilateral upper and lower extremities on medical research [place] scale. There is no drift or involuntary movement
noted. Deep tendon reflexes are 2+ bilateral upper and lower extremities and Babinski is absent bilaterally. There was no extinction noted on double simultaneous stimulation. Coordination is intact by finger to nose bilaterally.
Lab Results: See below.
Neuro Imaging:
1. CT head 01/26/25: No acute intracranial abnormality noted.
Differentials for the patient's presentation include:
1. Transient R eye blurred vision, right hand numbness, dizziness, and right-sided headache. Uncertain etiology; possibly migraine with aura vs structural brain or large vessel abnormality.
2. Chronic L eye CRAO.
Patient has the following risk factors for their symptoms: Hx previous similar episodes in the past.
IV Tenecteplase/IAT candidacy: Not a candidate due to NIHSS 0, resolution of symptoms.
Recommendations:
�Continue home apixaban and aspirin 81 mg daily.
�Goal normotension.
�MRI brain noncontrast, MRA head and neck pending.
�LDL goal <70. Lipid panel is pending. Continue home rosuvastatin 40 mg daily.
-Goal normoglycemia, hbA1c is 5.9.
-Checking blood work for metabolic abnormalities.
-NIHSS and neurological checks per unit guidelines.
-Provide patient with a stroke education packet.
-PT/OT Evaluations.
-Follow-up with ophthalmology and vascular surgery as an outpatient.
Discussed patient care with: Dr. Green, the patient
Vital Signs and Labs
-
Vital Signs and Labs:
Vital Signs
Temp Pulse Resp BP Pulse Ox
98.2 F 70 18 131/49 98
01/26/25 11:03 01/26/25 11:03 01/26/25 11:03 01/26/25 11:03 01/26/25 11:03
Lab Results
01/25/25 23:28
01/25/25 23:28
Sodium 136 mmol/L (135-145) 01/25/25 23:28
Potassium 4.3 mmol/L (3.5-5.1) 01/25/25 23:28
BUN 37 mg/dl (7-17) H 01/25/25 23:28
Glucose 123 mg/dl (70-99) H 01/25/25 23:28
Calcium 9.9 mg/dl (8.4-10.2) 01/25/25 23:28
Medications
-
Active Medications
Generic Name Dose Route Start Last Admin
Trade Name Freq PRN Reason Stop Dose Admin
Acetaminophen 650 mg 01/26/25 07:59
Acetaminophen 325 Mg Tablet PO 02/23/25 07:58
Q4HPRN PRN
mild pain/GRECO/temp> 100.4F
Amlodipine Besylate 10 mg 01/26/25 08:00 11 09:38
Amlodipine 10 Mg Tablet PO 02/23/25 07:59 10 mg
DAILY GRACIE Administration
Apixaban 2.5 mg 01/26/25 08:15 01/26/25 09:38
Apixaban (Eliquis) 2.5 Mg Tablet PO 02/23/25 08:14 2.5 mg
BID GRACIE Administration
Ascorbic Acid 1,000 mg 01/26/25 08:00 01/26/25 09:38
Ascorbic Acid 500 Mg Tablet PO 02/23/25 07:59 1,000 mg
DAILY GRACIE Administration
Aspirin 81 mg 01/26/25 08:00 01/26/25 09:38
Aspirin 81 Mg (Enteric Coated) Tablet PO 02/23/25 07:59 81 mg
DAILY GRACIE Administration
Bisacodyl 10 mg 01/26/25 07:59
Bisacodyl 10 Mg Rectal Suppository RECTAL 02/23/25 07:58
N20ELIC PRN
constipation
Calcium Carbonate 200 mg 01/26/25 07:59
Calcium Antacid 200 Mg (Calcium Carbonate 500 Mg) Chew Tablet PO 02/23/25 07:58
Q6HPRN PRN
indigestion
Cholecalciferol 25 mcg 01/26/25 08:00 01/26/25 09:38
Cholecalciferol (Vitamin D3) 25 Mcg Tablet (1,000 Units) PO 02/23/25 07:59 25 mcg
DAILY GRACIE Administration
Ezetimibe 10 mg 01/26/25 18:00
Ezetimibe (Zetia) 10 Mg Tablet PO 02/23/25 17:59
QPM GRACIE
Folic Acid 1 mg 01/26/25 08:00 01/26/25 09:39
Folic Acid 1 Mg Tablet PO 02/23/25 07:59 1 mg
DAILY GRACIE Administration
Losartan Potassium 50 mg 01/26/25 08:00 01/26/25 09:38
Losartan 50 Mg Tablet PO 02/23/25 07:59 50 mg
DAILY GRACIE Administration
Metoprolol Succinate 25 mg 01/26/25 08:00 01/26/25 09:37
Metoprolol 25 Mg Extended Release Tablet PO 02/23/25 07:59 25 mg
BID GRACIE Administration
Montelukast Sodium 10 mg 01/26/25 18:00
Montelukast Sodium 10 Mg Tablet PO 02/23/25 17:59
QPM GRACIE
Ondansetron HCl 4 mg 01/26/25 07:59
Ondansetron 4 Mg/2 Ml Vial IV 02/23/25 07:58
Q6HPRN PRN
nausea and vomiting
Pantoprazole Sodium 40 mg 01/26/25 18:00
Pantoprazole 40 Mg Delayed Release Tablet PO 02/23/25 17:59
QPM GRACIE
Polyethylene Glycol 17 grams 01/26/25 07:59
Polyethylene Glycol Powder 17 Grams Packet PO 02/23/25 07:58
DAILYPRN PRN
constipation
Ropinirole HCl 0.5 mg 01/26/25 22:00
Ropinirole 0.25 Mg Tablet PO 02/23/25 21:59
HS GRACIE
Rosuvastatin Calcium 40 mg 01/26/25 18:00
Rosuvastatin (Crestor) 20 Mg Tablet PO 02/23/25 17:59
QPM GRACIE
Senna/Docusate Sodium 1 tablet 01/26/25 07:59
Docusate W/Senna ([place]olis-Colace) Tablet PO 02/23/25 07:58
BIDPRN PRN
constipation
Sitagliptin Phosphate 25 mg 01/26/25 08:00 01/26/25 09:39
Sitagliptin (Januvia) 50 Mg Tablet PO 02/23/25 07:59 25 mg
DAILY GRACIE Administration
Sodium Chloride 0 flush 01/26/25 09:00
Sodium Chloride 0.9% (Flush) Syringe IV 02/23/25 08:59
PER PROTOCOL GRACIE
Vitamin B Complex/Vitamin C 1 caplet 01/26/25 08:00 01/26/25 09:39
Vitamin B Complex With Vitamin C Caplet PO 02/23/25 07:59 1 caplet
DAILY GRACIE Administration
Home Medications
�Medication �Instructions �Recorded
ascorbic acid (vitamin C) 500 mg 1,000 mg PO DAILY Supplement 04/10/19
tablet (Vitamin C)
cranberry jzzr-V-ttjbwrbg coag 450 1 tab PO DAILY Supplement 04/10/19
mg-30 mg-50 million cell tablet
(Xrjdcykgh-Iobmpvolq-Pufzyiy C)
docusate sodium 100 mg capsule 100 mg PO QPM Constipation 04/10/19
ezetimibe 10 mg tablet 10 mg PO QPM High cholesterol 04/10/19
montelukast 10 mg tablet 10 mg PO QPM Lung/breathing issues 04/10/19
aspirin 81 mg tablet,delayed 81 mg PO DAILY Blood clot 11/18/19
release prevention/tx
pantoprazole 40 mg tablet,delayed 40 mg PO QPM Gastrointestinal issue 12/03/20
release
apixaban 5 mg tablet (Eliquis) 2.5 mg PO BID Blood clot 12/06/20
prevention/tx
dorzolamide 2 %-timolol 0.5 % (PF) 1 drp LEFT EYE BID Eye condition 12/06/20
eye drops
amlodipine 10 mg tablet 10 mg PO DAILY Blood pressure 12/08/20
B-complex with vitamin C 1 cap PO DAILY Supplement 12/16/20
folic acid 1 mg tablet 1 mg PO DAILY Supplement 12/16/20
metoprolol succinate 25 mg 25 mg PO BID Heart 12/16/20
tablet,extended release 24 hr disease/condition
cholecalciferol (vitamin D3) 25 1,000 units PO DAILY Supplement 03/24/21
mcg (1,000 unit) tablet
latanoprost 0.005 % eye drops 1 drp LEFT EYE DAILY Eye condition 03/24/21
ropinirole 0.5 mg tablet 0.5 mg PO HS Restless legs 03/07/22
rosuvastatin 40 mg tablet 40 mg PO QPM High Cholesterol 03/07/22
losartan 50 mg tablet 50 mg PO DAILY Blood Pressure 01/30/23
potassium 1 tab PO QPM Electrolyte Repletion 01/30/23
sertraline 50 mg tablet 50 mg PO QPM Depression 01/30/23
sitagliptin phosphate 50 mg tablet 25 mg PO DAILY Diabetes 01/30/23
(Januvia)
tramadol 50 mg tablet 50 mg PO Q6H PRN moderate pain 01/30/23
zinc acetate 50 mg (zinc) capsule 50 mg PO DAILY Supplement 01/30/23
mupirocin 2 % topical ointment 1 applic topical TID #1 g 02/04/23
diphenhydramine HCl 25 mg capsule 25 mg PO PRN PRN With CT Scan 07/23/23
(Benadryl)
prednisone 10 mg tablet 32 mg PO PRN PRN With CT Scan 07/23/23
NIH Stroke Score
Subsequent NIH Scale
Date of Subsequent NIH Scale: 01/26/25
Time of Subsequent NIH Scale: 09:45
NIH Stroke Score
Level of Consciousness: 0 - Alert
LOC Questions: 0-Answers both correctly
LOC Commands: 0-Performs both correctly
Best Horizontal Gaze: 0-Normal
Visual Currie: 0=Normal, no visual loss (Low vision L eye at baseline, GIOVANNY)
Facial Palsy: 0=Normal, symmetrical
Motor - Right Arm: 0=No drift 10 seconds
Motor - Left Arm: 0=No drift 10 seconds
Motor - Right Le-No drift 5 seconds
Motor - Left Le-No drift 5 seconds
Limb Ataxia: 0-Absent
Sensation: 0-Normal
Best Language: 0-No aphasia
Dysarthria: 0-Normal
Extinction and Inattention: 0-No abnormality
NIH Total Score:: 0
Modified Justin (mRS) Score
Modified Justin Scale (mRS): No symptoms
Score: 0
Alteplase Contraindication
Inclusion and Exclusion criteria reviewed: Yes
IAT Contraindications: NIHSS < 6
[2025-01-26 14:31] LABS: Glycohemoglobin (HgbA1c) 5.8 % (4.0-5.9); Very Low Density Lipoprotein 27 mg/dl (0-30)
[2025-01-26 15:04] LABS: HDL Cholesterol 39 mg/dl; LDL Cholesterol, Calculated 81 mg/dl
--- NOTE | 2025-01-26 15:55 | CM ---
Patient seen bedside, initial assessment completed. Patient is a 79-year-old who has a past medical history significant for possible atrial fibrillation on anticoagulation, hypertension, aortic stenosis status post TAVR, femoral-femoral artery
bypass, bilateral carotid artery stenosis status post left endarterectomy resulting in left eye central retinal artery occlusion and blindness, right endarterectomy and right subclavian carotid artery bypass, asthma, GERD, CKD stage III, presents to
the emergency department with blurry vision and indigestion.
Patient resides w/ spouse in a 5 story split level home, 7 steps to enter from the outside. Bed/bath on second level, 7 steps. Patient stated she doesn't go on the upper levels. Patient ambulates w/ a cane, has a crutch that she uses as well
sometimes. Independent w/ ADLs and personal care. Patient has additional grab bar and shower chair in bathroom. Denies SNF/HC hx.
PCP: Shanti Cancino
Pharmacy: [facility]
Patient admitted under obs services. HENDRICKS form verbally reviewed, copy provided, copy on chart
PT/OT evaluations ordered
Plan: Home, will watch for any needs
--- NOTE | 2025-01-26 15:58 | PTOTSP ---
pt currently requires supervision to complete simple ADLs, functional transfers, ambulation. pt reports vision, sensation is back to baseline. no acute OT needs identified at this time, will sign off.
[2025-01-26] MEDS: PROTONIX 40 MG PO (17:04)
[2025-01-26] MEDS: CRESTOR 40 MG PO (17:04)
[2025-01-26] MEDS: SINGULAIR 10 MG PO (17:04)
[2025-01-26] MEDS: ZETIA 10 MG PO (17:04)
[2025-01-26 19:55] LABS: Ferritin 56.3 ng/ml (11.1-264.0)
[2025-01-26 20:27] LABS: Folate > 20.0 ng/ml (2.76-20); Vitamin B12 927 pg/ml (239-931)
[2025-01-26] MEDS: REQUIP 0.5 MG PO (21:07)
[2025-01-27 03:34] VITALS: BP 111/45
[2025-01-27 07:17] LABS: Glucose - Point of Care 109 mg/dl (70-99)
[2025-01-27 07:25] VITALS: BP 114/43
[2025-01-27] MEDS: ASPIR LOW (ENTERIC COATED) 81 MG PO (07:41)
[2025-01-27] MEDS: B COMPLEX w/VITAMIN C 1 CAPLET PO (07:42)
[2025-01-27] MEDS: ELIQUIS 2.5 MG PO (07:42)
[2025-01-27] MEDS: NORVASC 10 MG PO (07:42)
[2025-01-27] MEDS: JANUVIA 25 MG PO (07:42)
[2025-01-27] MEDS: VITAMIN C 1000 MG PO (07:43)
[2025-01-27] MEDS: TOPROL XL 25 MG PO (07:43)
[2025-01-27] MEDS: VITAMIN D3 (cholecalciferol) 25 MCG PO (07:43)
[2025-01-27] MEDS: COZAAR 50 MG PO (07:43)
[2025-01-27] MEDS: FOLVITE 1 MG PO (07:44)
[2025-01-27 09:14] LABS: Blood Urea Nitrogen 38 mg/dl (7-17); Calcium 10.0 mg/dl (8.4-10.2); Carbon Dioxide 22 mmol/L (22-30); Chloride 109 mmol/L (98-107); Estimated Creatinine Clearance 20 ml/min; Glucose 100 mg/dl (70-99); HDL Cholesterol 41 mg/dl; LDL Cholesterol, Calculated 82 mg/dl; Magnesium 2.1 mg/dl (1.6-2.3); Potassium 4.4 mmol/L (3.5-5.1); Sodium 141 mmol/L (135-145); Very Low Density Lipoprotein 27 mg/dl (0-30); eGFR 21.97
--- NOTE | 2025-01-27 10:02 | W.PN.HOSP.TC ---
Today's Communication/Plan
-
dc
Assessment / Plan
Assessment / Plan
Physical Exam
General: Well Developed, Well Nourished and No Apparent Distress
HEENT: NormoCephalic, Moist mucous membranes and Atraumatic; No PERRLA (Left eye dilated pupil (blind in that eye).)
Respiratory: Clear
Cardiac: S1/S2 and Regular Rhythm; No Murmur or Rub
GI: Soft, Non Tender, Non Distended and Normal Bowel Sounds; No Organomegaly
Rectal: Deferred by Provider
Genito-urinary: No [place]cd[place]
Musculoskeletal: No Clubbing, No Cyanosis and No Edema
Skin: no rash
Neuro: AO x 3 and Nonfocal/grossly intact. Gait at baseline
Psych: Calm
Right eye blurry vision -resolved
seen by neurology, fno stroke, can remain on same meds with Eliquis & aspirin. Could be ocular migraine, recommend OP follow up with vascular/ eye doctor mRI studies
d/w Dr Juan, pt is known to him, no need for vascular intervention
AFIB - NSR, rate controlled
- continue eliquis
- continue metoprolol
Asthma - No active process
- continue montelukast
- prn nebs
HTN - stable
- continue her norvasc losartan and metoprolol
DVT PPX - SCDs
Code status - Full Code
Total discharge time spent to see the pt, examine the pt,review data and lab results, discuss discharge plan with pt, her daughter, and nursing staff around 65 minutes
Anticipated Discharge: Today
Subjective/Interval History
-
Date of Service: January 27, 2025
She is back to [facility]
Denies any complaints
Requesting to go home
Objective Data
-
Labs:
Laboratory Results
01/27/25
08:03
Sodium 141
Potassium 4.4
Chloride 109 H
Carbon Dioxide 22
BUN 38 H
Creatinine 2.2 H
Glucose 100 H
Calcium 10.0
Vital Signs:
Vital Signs
Temp Pulse Resp BP Pulse Ox
97.3 F 76 18 118/57 96
01/27/25 07:25 01/27/25 07:42 01/27/25 07:25 01/27/25 07:42 01/27/25 09:47
I&O
01/26/25 01/27/25 01/28/25
06:59 06:59 06:59
Intake Total 660 / 660
Balance 660 / 660
[2025-01-27 11:02] VITALS: BP 108/52
--- NOTE | 2025-01-27 11:22 | CM ---
Patient will d/c home today
No skilled needs per PT/OT
No CM needs at this time
Plan: Home, no needs
--- NOTE | 2025-01-27 12:38 | W.DCSUMMARY ---
Discharge Summary
Discharge Data
Date of Admission: 01/26/25
Date of Discharge: 01/27/25
-
Pending Results: No
Hospital Course
79 years old female presented to the ER with dizziness and blurry vision of the right eye for 2-3 hours. She described the dizziness and visual disturbance as happening together, with the blurred vision primarily affecting his right eye. The
patient has a history of a stroke affecting the left eye, leaving it legally blind. She also reported a headache that was persistent and behind right eye. She is on apixaban and aspirin at home. She is being followed by vascular surgery as an
outpatient. Initial images studies of brain did not show acute findings. She was admitted and neurologist was consulted. Neurologist felt that she had a transient loss of vision in the right eye but she returned to her baseline in about 2 to 3
hours. Patient had images studies as follows :
. The MRI of the brain did not show evidence of an acute infarct, but showed chronic infarcts in the right lentiform nucleus, right temporal lobe, bilateral pearce radiata and left cerebellar hemisphere.
. The MRA of the brain did not show evidence for high-grade stenosis or occlusion in the [place] of [place]. The MRA of the neck showed chronic occlusion of the right common carotid artery. Patent right subclavian to distal right common carotid artery
bypass graft. The left carotid stent.
Neurologist recommended to keep same medication regimen including Eliquis and aspirin. Patient was evaluated by PT/OT/speech with no skilled needed. She remained hemodynamically stable. 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
for further recommendation. Discharge instructions were discussed with patient and her daughter over the phone. Patient was discharged in a stable condition.
Discharge Plan
-
Patient Disposition: Home (Routine Discharge)
Discharge Diagnosis/Procedures: Transient blurred vision of the right eye. You are seen by a neurologist. Could be ocular migraine/TIA. neurologist recommended to continue her current medication follow-up with vascular in outpatient setting.
Your vascular doctor was notified about this admission.
MRI studies did not show acute stroke
Diet: As tolerated
Referrals:
Shanti Cancino DO [Family Provider, Family Practice] - in one to two weeks
Prescriptions:
Continued
ascorbic acid (vitamin C) [Vitamin C] 500 MG tablet
1,000 mg PO DAILY
docusate sodium 100 MG capsule
100 mg PO QPM
montelukast 10 MG tablet
10 mg PO QPM
ezetimibe 10 MG tablet
10 mg PO QPM
Bqanynaay-Dflygouuq-Okxtlwu C 1 EACH tablet
1 tab PO DAILY
aspirin 81 MG tablet,delayed release (DR/EC)
81 mg PO DAILY
pantoprazole 40 MG tablet,delayed release (DR/EC)
40 mg PO QPM
Eliquis 5 MG tablet
2.5 mg PO BID
dorzolamide-timolol (PF) 10 ML drops
1 drp LEFT EYE BID
amlodipine 10 MG tablet
10 mg PO DAILY
Rx Instructions:
Disc
folic acid 1 MG tablet
1 mg PO DAILY
metoprolol succinate 25 MG tablet extended release 24 hr
25 mg PO BID
B-complex with vitamin C 1 CAPLET tablet
1 cap PO DAILY
cholecalciferol (vitamin D3) 1,000 UNITS tablet
1,000 units PO DAILY
latanoprost 1 DROP drops
1 drp LEFT EYE DAILY
ropinirole 0.5 mg tablet
0.5 mg PO HS
rosuvastatin 40 mg tablet
40 mg PO QPM
losartan 50 mg Tablet
50 mg PO DAILY
zinc acetate 50 mg (zinc) Capsule
50 mg PO DAILY
tramadol 50 mg Tablet
50 mg PO Q6H PRN (Reason: moderate pain)
Patient Comments:
01/30/2023: last filled 10/13/20, 120 tabs for 30 days from [facility]
sertraline 50 mg tablet
50 mg PO QPM
potassium
1 tab PO QPM
Januvia 50 mg tablet
25 mg PO DAILY
mupirocin 2 % Ointment
1 applic topical TID Qty: 1 0RF
prednisone 10 mg Tablet
32 mg PO PRN PRN (Reason: With CT Scan)
diphenhydramine HCl [Benadryl] 25 mg Capsule
25 mg PO PRN PRN (Reason: With CT Scan)
Discharge Orders:
Discharge Patient (As Directed); Ordered 01/27/25
Ordered By: Lillian Dumotn
Discharge Date and Time
Discharge Date/Time: 01/27/25 12:19
Print Language: NIGERIEN
== END 2025-01-27 12:19 | disposition home or self-care (01) ==
LOC: 4 EAST ACU 05:43
PROVIDERS: Emergency Medicine; Physician Assistant; ADMITTING PHYSICIAN Internal Medicine; ATTENDING PHYSICIAN Internal Medicine; EMERGENCY PHYSICIAN Emergency Medicine; FAMILY PHYSICIAN Internal Medicine; OTHER PHYSICIAN Psychiatry & Neurology Neurology
DX: R42 Dizziness and giddiness (principal); H53.121 Transient visual loss, right eye; R07.89 Other chest pain; H53.8 Other visual disturbances; R51.9 Headache, unspecified; J45.909 Unspecified asthma, uncomplicated; I69.398 Other sequelae of cerebral infarction; G89.29 Other chronic pain; I12.9 Hypertensive chronic kidney disease with stage 1 through stage 4 chronic kidney disease, or unspecified chronic kidney disease; G47.33 Obstructive sleep apnea (adult) (pediatric); R53.1 Weakness; I48.91 Unspecified atrial fibrillation; F32.A Depression, unspecified; G47.00 Insomnia, unspecified; M19.042 Primary osteoarthritis, left hand; E78.00 Pure hypercholesterolemia, unspecified; M79.7 Fibromyalgia; E11.22 Type 2 diabetes mellitus with diabetic chronic kidney disease; G93.89 Other specified disorders of brain; I70.8 Atherosclerosis of other arteries; K21.00 Gastro-esophageal reflux disease with esophagitis, without bleeding; I25.2 Old myocardial infarction; Z87.440 Personal history of urinary (tract) infections; Z79.899 Other long term (current) drug therapy; Z85.42 Personal history of malignant neoplasm of other parts of uterus; Z87.442 Personal history of urinary calculi; Z87.19 Personal history of other diseases of the digestive system; Z87.891 Personal history of nicotine dependence; Z90.710 Acquired absence of both cervix and uterus; Z90.49 Acquired absence of other specified parts of digestive tract; Z96.653 Presence of artificial knee joint, bilateral; Z98.1 Arthrodesis status; Z95.2 Presence of prosthetic heart valve; Z88.5 Allergy status to narcotic agent; Z88.0 Allergy status to penicillin; Z88.2 Allergy status to sulfonamides; Z88.8 Allergy status to other drugs, medicaments and biological substances; Z88.1 Allergy status to other antibiotic agents; Z91.041 Radiographic dye allergy status; Z79.01 Long term (current) use of anticoagulants; Z79.82 Long term (current) use of aspirin; Z82.3 Family history of stroke; Z87.01 Personal history of pneumonia (recurrent); Z86.19 Personal history of other infectious and parasitic diseases; Z79.84 Long term (current) use of oral hypoglycemic drugs
CPT/HCPCS: 70450; 70544; 70548; 70551; 71046; 80048; 80053; 80061; 82607; 82728; 82746; 82962; 83036; 83690; 83735; 84439; 84443; 84484; 85025; 85652; 93005; 97110; 97161; 97165; 99285; A9585; G0378